=== PATIENT | female | born 1970 | race Caucasian/White ===

== ENCOUNTER 2018-11-20 08:54 | Emergency (ER) | payer SELFPAY ==
[2018-11-20] MEDS ORDERED: Naproxen 500 MG Tab ONE (09:15)
[2018-11-20] MEDS ORDERED: Cyclobenzaprine 10 MG Tab ONE (09:15)
[2018-11-20] MEDS ORDERED: Diazepam 5 MG Tab PO ONE (09:21)
[2018-11-20] MEDS ORDERED: Ketorolac 60 MG/2 ML SDV IM ONE (09:22)
--- NOTE | 2018-11-20 09:33 | EDM.PDOC ---
ED HPI GENERAL MEDICAL PROBLEM - General Chief Complaint: Lower Extremity Injury/Pain Stated Complaint: LEG PAIN Time Seen by Provider: 11/20/18 09:15 Source of Information: Reports: Patient History Limitations: Reports: No Limitations - History of Present Illness INITIAL COMMENTS - FREE TEXT/NARRATIVE: This patient presents to the ED for evaluation of pain. She is complaining of pain in her right leg, particularly her foot and her left knee. She states she started having some mild pain earlier in the week on her right side. It progressed to the point that she "cannot walk." She has been limping for a couple of days and then states her left knee started to hurt as well. She denies any falls or other history of trauma. She states she wore bilateral leg braces as a young child but doesn't know what that was for. She denies fever, recent illnesses, other symptoms or concerns. She takes Nexium regularly and denies chronic health problems. Onset: Gradual Onset Date: 11/18/18 Onset Time: 09:00 Duration: Getting Worse Location: Reports: Lower Extremity, Left, Lower Extremity, Right Quality: Reports: Burning, Sharp, Stabbing, Throbbing Severity: Severe Improves with: Reports: Immobilization Worsens with: Reports: Movement Associated Symptoms: Reports: No Other Symptoms Bilateral Leg Pain Score (Numeric/FACES): 10 - Related Data Allergies Allergy/AdvReac Type Severity Reaction Status Date / Time No Known Allergies Allergy Verified 11/20/18 08:58 Home Meds: Home Meds NK [No Known Home Meds] 11/20/18 [History] Review of Systems - Review of Systems Review Of Systems: See Below Constitutional: Denies: Fever, Weakness Eyes: Reports: No Symptoms Ears: Reports: No Symptoms Nose: Reports: No Symptoms Respiratory: Reports: No Symptoms Cardiovascular: Reports: No Symptoms GI/Abdominal: Reports: No Symptoms Musculoskeletal: Reports: Leg Pain, Foot Pain, Muscle Pain Skin: Reports: No Symptoms Neurological: Reports: Weakness. Denies: Headache, Numbness, Paresthesia, Tingling, Tremors Psychiatric: Reports: No Symptoms ED EXAM, GENERAL - Physical Exam Exam: See Below Exam Limited By: No Limitations General Appearance: Alert, WD/WN, No Apparent Distress Eye Exam: Bilateral Eye: PERRL Ears: Normal External Exam Nose: Normal Inspection Throat/Mouth: Normal Inspection Head: Atraumatic, Normocephalic Neck: Supple, Non-Tender, Full Range of Motion Respiratory/Chest: No Respiratory Distress Cardiovascular: Regular Rate, Rhythm Back Exam: Normal Inspection, Paraspinal Tenderness (Tenderness right sciatic area.) Extremities: Normal Inspection, Normal Range of Motion, Non-Tender, No Pedal Edema, Normal Capillary Refill, Leg Pain (No tenderness with palpation of right leg. No tenderness with palpation of left knee. No deformities, swelling, or discoloration noted bilateral lower extremities. ) Neurological: Alert, Oriented, Normal Reflexes Psychiatric: Anxious, Tearful Skin Exam: Warm, Dry, Intact Course - Vital Signs Last Recorded V/S: Last Vital Signs Temp 36.2 C 11/20/18 08:55 Pulse 73 11/20/18 08:55 Resp 24 H 11/20/18 08:55 BP 137/92 H 11/20/18 08:55 Pulse Ox 100 11/20/18 08:55 - Orders/Labs/Meds Meds: Medications Discontinued Medications Generic Name Dose Route Start Last Admin Trade Name Kevin PRN Reason Stop Dose Admin Diazepam 5 mg 11/20/18 09:21 11/20/18 09:23 Valium. PO 11/20/18 09:22 5 mg ONETIME ONE Administration Ketorolac Tromethamine 60 mg 11/20/18 09:22 11/20/18 09:30 Toradol IM 11/20/18 09:23 60 mg ONETIME ONE Administration - Re-Assessments/Exams Free Text/Narrative Re-Assessment/Exam: 11/20/18 11:09 This patient presents for evaluation of back and leg pain and radicular symptoms. They have no history of back pain in the past. The pain has improved with interventions in the ED although the patient states she is not able to walk. The patient did not sustain any trauma, therefore x-rays are not necessary due to the low likelihood of fracture or subluxation. Advanced imaging with CT/MRI is not indicated at this time, but may be indicated in the future if symptoms fail to resolve. Nor is there any indication for consultation with neurosurgery or orthopedic spinal surgeon. The patient has not had a fever, saddle/perineal anesthesia, bilateral foot numbness, or bowel or bladder dysfunction. There is no clinical evidence of cauda equina syndrome, discitis, spinal/epidural space hematoma or epidural abscess. The neurological exam is normal, with the exception of the dermatomal symptoms noted herein. The patient was advised that radiculopathy often takes significant time to resolve, and that follow up with primary care, neurology and/or neurosurgery will be indicated if symptoms do not improve. The patient will be discharged with pain medications to use as directed. No heavy lifting, bending or twisting. Return if increasing pain, muscular weakness, or bowel or bladder dysfunction. Supportive care instructions were shared with the patient to include rest, NSAIDs, gentle stretching, and ice. Departure - Departure Time of Disposition: 11:00 Disposition: Home, Self-Care 01 Clinical Impression: Sciatic leg pain - Discharge Information *PRESCRIPTION DRUG MONITORING PROGRAM REVIEWED*: Yes (No concerning findings) *COPY OF PRESCRIPTION DRUG MONITORING REPORT IN PATIENT SO: No Instructions: Cyclobenzaprine tablets, Naproxen and naproxen sodium oral immediate-release tablets, Sciatica Referrals: PCP,None [Primary Care Provider] - Forms: ED Department Discharge Care Plan Goals: Return to clinic if symptoms not relieved. Take Naproxen 1 tablet 2 x day and cyclobenzaprine 10mg 3 x day as directed by health care provider. Call Gerry Wick for information on financial assistance in am. [phone]. Ask for her. There is a program called "[employer]" Also enclosed is card that may help you apply for medical assistance.
== END 2018-11-20 11:00 | disposition home or self-care (01) ==
LOC: LB.ED 08:54
DX: M54.31 Sciatica, right side (principal); M54.32 Sciatica, left side
CPT/HCPCS: 96372; 99283; A9270; J1885

== ENCOUNTER 2021-06-21 16:24 | Emergency (ER) | payer SELFPAY ==
--- NOTE | 2021-06-21 17:05 | EDM.PDOC ---
ED HPI GENERAL MEDICAL PROBLEM - General Chief Complaint: Skin Complaint Stated Complaint: rash Time Seen by Provider: 06/21/21 16:45 Source of Information: Reports: Patient History Limitations: Reports: No Limitations - History of Present Illness INITIAL COMMENTS - FREE TEXT/NARRATIVE: 30-year-old female presents the ED complaining of a urticaria rash. Onset has been gradually getting worse over the last week the only palliative measures is cool environments. Heat increases the itchiness. There is no pain associated with the rash. Multiple broken lesions from excessive scratching. The only locations that she does not have this rash are her breasts, vaginal area, and feet. Patient does have residual lesions from a shingles outbreak that she had earlier this month. Patient has tried hydrocortisone cream without effect Benadryl has allowed her to sleep at night. Positive for: Bruising easily, nonproductive cough, postnasal drip, clear nasal discharge, recent move within the last week. Negative for: Chest pain, shortness of breath, trauma, syncope/near syncope, dizzy lightheaded, nausea vomiting, constipation diarrhea, blood in stool, black tarry stools, changes to urine volume, frequency, smell, appearance. Patient denies any headaches changes in vision, any red swollen joints, new cleaning products. 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 PATIENT DID NOT REALLY KNOW - Infectious Disease History Infectious Disease History: Reports: Chicken Pox - Past Surgical History HEENT Surgical History: Reports: Adenoidectomy, Tonsillectomy Female Surgical History: Reports: Hysterectomy Social & Family History - Family History Family Medical History: No Pertinent Family History ED ROS GENERAL - Review of Systems Review Of Systems: Comprehensive ROS is negative, except as noted in HPI. ED EXAM, SKIN/RASH Exam: See Below Text/Narrative:: 50-year-old female found sitting in gown in bay 1. Witnessed incessant scratching prior to contact with patient. Patient in moderate distress due to her discomfort from pruritus. Patient is alert and oriented 3/3 GCS 4 5 6. Speaking in full sentences. No obvious trauma Exam Limited By: No Limitations General Appearance: Alert, WD/WN, No Apparent Distress Ears: Normal External Exam, Hearing Grossly Normal Nose: Clear Rhinorrhea, Other (Pale nasal mucosa) Throat/Mouth: Normal Lips, Normal Gums, Normal Oropharynx, Normal Voice, No Airway Compromise Head: Atraumatic (Residual lesions from shingles), Normocephalic Respiratory/Chest: No Respiratory Distress, Lungs Clear, Normal Breath Sounds, No Accessory Muscle Use, Chest Non-Tender Cardiovascular: Normal Peripheral Pulses, Regular Rate, Rhythm, No Edema, No Gallop, No JVD, No Murmur, No Rub GI/Abdominal: Normal Bowel Sounds, Soft, Non-Tender, No Organomegaly, No Distention, No Abnormal Bruit, No Mass (Female) Exam: Deferred Rectal (Female) Exam: Deferred Extremities: Normal Inspection, Normal Range of Motion, Non-Tender, No Pedal Edema, Normal Capillary Refill Neurological: Alert, Oriented, Normal Cognition Psychiatric: Normal Affect, Normal Mood Skin: Warm, Rash, Other (Damp. Urticarial type rash multiple locations including abdomen thighs, arms back shoulders.) Location, Skin: Generalized Characteristics: Urticarial Associated features: Warmth Lymphatic: No Adenopathy Course - Orders/Labs/Meds Meds: Medications Discontinued Medications Generic Name Dose Route Start Last Admin Trade Name Freq PRN Reason Stop Dose Admin Triamcinolone Acetonide 80 mg 06/21/21 16:54 Triamcinolone Acetonide 40 Mg/Ml 1 Ml Sdv INJECT 06/21/21 16:55 ONETIME ONE Departure - Departure Time of Disposition: 17:30 Disposition: Home, Self-Care 01 Condition: Good Clinical Impression: Urticaria of unknown origin - Discharge Information *PRESCRIPTION DRUG MONITORING PROGRAM REVIEWED*: No *COPY OF PRESCRIPTION DRUG MONITORING REPORT IN PATIENT SO: No Instructions: Hives, [id number] - Problem List Review Problem List Initiated/Reviewed/Updated: Yes - Assessment/Plan Assessment:: Patient being seen for rash characterized as a generalized urticarial skin rash of unknown origin or trigger. Plan: ABC, history, exam, patient education about eliminating possible triggers such as cleaning supplies, medications, and the possibility of being idiopathic. 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 If they do return patient restart the above regimen. Patient is to follow-up with primary care provider. Patient's questions were answered to her satisfaction patient understood the care plan and agreed. Patient was discharged in stable condition.
[2021-06-21] MEDS: Triamcinolone Acetonide 40 MG/ML 1 ML SDV INJECT ONE (17:06)
== END 2021-06-21 17:20 | disposition home or self-care (01) ==
LOC: LB.ED 16:24
DX: L50.9 Urticaria, unspecified (principal)
CPT/HCPCS: 96372; 99282; J3301